=== PATIENT | male | born 1995 | race Caucasian/White ===

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

== ENCOUNTER 2017-07-05 10:43 | Emergency (ER) | payer BC ==
[~2017-07-05] VITALS: Ht 185.4 cm; Wt 77.7 kg
[~2017-07-05 10:43] MED LIST: FLUO20CA35 PO
[2017-07-05 10:47] VITALS: TEMP 36.3; Ht 185.4 cm; Wt 77.7 kg
[2017-07-05] MEDS ORDERED: LORA-741 PO (11:42)
[2017-07-05] MEDS ORDERED: SERT50TA PO (11:42)
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
[2017-07-05 13:08] LABS: BASO % 0.3 %; BASO ABS # 0.03 K/uL (0-0.2); EOS % 0.8 %; EOS ABS # 0.08 K/uL (0-0.5); HEMATOCRIT 49.9 % (42-52); HEMOGLOBIN 18.5 g/dL (14.0-18.0); IG# 0.03 K/uL (0.00-0.02); LYMPH % 13.6 %; LYMPH ABS # 1.36 K/uL (1.2-3.4); MEAN CELL VOLUME 85.2 fL (80-100); MEAN CORPUSCULAR HEMOGLOBIN 31.6 pg (25-34); MEAN CORPUSCULAR HGB CONC 37.1 g/dl (32-36); MEAN PLATELET VOLUME 10.1 fL (7.4-10.4); MONO % 4.8 %; MONO ABS # 0.48 K/uL (0.11-0.59); NEUT % 80.2 %; NEUT ABS # 8.02 K/uL (1.4-6.5); PLATELET COUNT 214 K/uL (130-400); RED CELL DISTRIBUTION WIDTH CV 12.6 % (11.5-14.5); RED CELL DISTRIBUTION WIDTH SD 39.2 fL (36.4-46.3)
[2017-07-05 13:25] LABS: ALBUMIN 4.5 gm/dl (3.4-5.0); CALCIUM 9.6 mg/dl (8.5-10.1); CREATININE 1.11 mg/dl (0.60-1.40); POTASSIUM 3.8 mmol/L (3.5-5.1)
[2017-07-05 13:49] LABS: TOTAL PROTEIN 7.6 gm/dl (6.4-8.2)
[2017-07-05 14:25] VITALS: BP 142/89; PULSE 77; O2SAT 99
== END 2017-07-05 14:36 | disposition home or self-care (01) ==
LOC: C.EDB 10:44 → C.EDA 14:36
DX: F41.9 Anxiety disorder, unspecified (principal); F55.8 Abuse of other non-psychoactive substances; F17.200 Nicotine dependence, unspecified, uncomplicated; Z88.8 Allergy status to other drugs, medicaments and biological substances; Z88.0 Allergy status to penicillin